=== PATIENT | female | born 1995 | race African-American/Black ===

== ENCOUNTER 2019-01-12 12:32 | Emergency (ER) | payer BC ==
[2019-01-12] MEDS: morphine 4 MG/ML VIAL IM (13:27)
[2019-01-12] MEDS: DIPHTH/TET/ACEL PERTUSS (ADULT) 0.5 ML VIAL IM* (13:27)
[2019-01-12] MEDS: LIDOCAINE 5% 35 GM OINT TOP (13:45)
[2019-01-12] MEDS: MUPIROCIN 2% 22 GM OINT TOP (13:46)
== END 2019-01-12 14:54 | disposition home or self-care (01) ==
LOC: FTE 12:32
DX: T24.212A Burn of second degree of left thigh, initial encounter (principal); X15.8XXA Contact with other hot household appliances, initial encounter; Y92.89 Other specified places as the place of occurrence of the external cause; Z23 Encounter for immunization
CPT/HCPCS: 90471; 90715; 96372; 99284-25